=== PATIENT | male | born 1985 | race Caucasian/White ===

== ENCOUNTER 2022-11-08 17:46 | Emergency (ER) | payer OTHER, MEDICAID, SELFPAY ==
[2022-11-08 17:54] VITALS: BP 179/111; PULSE 99; RESP 16; TEMP 36.8; O2SAT 99; BMI 48.6
--- NOTE | 2022-11-08 18:00 | DI.CT.S_ITS ---
PROCEDURE: CT STROKE INDICATIONS: Stroke symptoms TECHNIQUE: Noncontrast 4.5 mm thick angled axial sections acquired from the foramen magnum to the vertex, with coronal reformats. For radiation dose reduction, the following was used: automated exposure control, adjustment of mA and/or kV according to patient size. COMPARISON: [facility], CT, CT ANGIO HEAD AND NECK, 11/08/2022, 18:21. FINDINGS: Image quality: Excellent. CSF spaces: Basal cisterns are patent. No extra-axial fluid collections. Ventricles are normal in size and shape. Brain: No midline shift. No intracranial masses or hemorrhage. Colin-white matter interface is normal. Skull and face: Calvarium and visualized facial bones are intact, without suspicious lesions. Sinuses: Visualized sinuses and mastoids are clear. IMPRESSION: Normal CT of the brain This study fulfills neurological imaging criteria for inclusion or exclusion of acute stroke therapies based on available published neurological imaging guidelines. Note: Critical results were discussed with Dr. Loredo at 05:50 PM [place] time on 11/08/22 Approved by: Galen Kohli M.D. on 11/08/2022 at 17:50
--- NOTE | 2022-11-08 18:00 | DI.RAD.S_ITS ---
PROCEDURE: XR CHEST 1V INDICATIONS: Possible stroke TECHNIQUE: One view of the chest was acquired. COMPARISON: None. FINDINGS: Surgical changes and devices: None. Lungs and pleura: Lungs are clear. No pleural effusions or pneumothorax. Mediastinum: Mediastinal contours appear normal. Heart size is normal. Bones and chest wall: No suspicious bony lesions. Overlying soft tissues appear unremarkable. IMPRESSION: No acute cardiopulmonary findings Approved by: Galen Kohli M.D. on 11/08/2022 at 17:43
--- NOTE | 2022-11-08 18:04 | DI.CT.S_ITS ---
PROCEDURE: CT ANGIO HEAD AND NECK INDICATIONS: stroke eval, within window, vision, dizzy TECHNIQUE: After the administration of intravenous contrast, 1 mm thick sections acquired from the aortic arch through the [place] of [place]. MIP reformats of the arterial vasculature were utilized. For radiation dose reduction, the following was used: automated exposure control, adjustment of mA and/or kV according to patient size. COMPARISON: None. FINDINGS: Image quality: Limited by bolus timing, but diagnostic. HEAD CT ANGIOGRAPHY: Anterior circulation: Intracranial internal carotid arteries are normal in size and flow. The flow within the paired anterior cerebral arteries is normal and symmetric. The flow within the middle cerebral arteries is normal and symmetric. The anterior communicating artery is seen. No aneurysms are seen. Posterior circulation: Visualized portions of the vertebral arteries demonstrate normal caliber, and join to form a normal appearing basilar artery. Flow within the posterior cerebral arteries is normal and symmetric. No aneurysms are seen. NECK CT ANGIOGRAPHY: Carotid system: The great vessels demonstrate a conventional anatomy as they arise from the aortic arch. The origins of the common carotid arteries appear patent. The common carotid arteries demonstrate normal caliber and courses. The bifurcation regions are both widely patent. The internal carotid arteries demonstrate normal calibers and courses. Posterior circulation: The origins of the vertebral arteries both appear widely patent. The more superior extracranial portions of both vertebral arteries also demonstrate normal courses and calibers. They join to form a normal appearing basilar artery. Soft tissues: Visualized neck soft tissues demonstrate no suspicious abnormalities. Bones: No suspicious bony lesions. Visualized cervical spine appears normally aligned. IMPRESSION: Normal CT angiogram of the head and neck. No evidence of large vessel occlusion, aneurysm or vascular malformation Any quantitative measurements of stenosis were performed using NASCET criteria. Approved by: Galen Kohli M.D. on 11/08/2022 at 18:06
--- NOTE | 2022-11-08 18:20 | ED_ITS ---
HPI - Neuro Symptoms/Deficit General Chief Complaint: Neuro Symptoms/Deficit Stated Complaint: lost vision/sent by [facility] Time Seen by Provider: 11/08/22 18:03 History of Present Illness HPI Narrative: 37-year-old male nonsmoker without chronic medical history presents with a chief complaint of blurring of vision that he noticed at about 1700 today. 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 It is unclear if what he is referring to his blurring or if they are actually double images [id number]. He denies dizziness, weakness or lightheadedness. Denies any trouble forming thoughts or with speech. He denies any difficulty walking a straight line, he denies any upper extremity numbness, tingling or weakness. He is activated as a code stroke. He does report a history of migraines and states he is never had an ocular migraine. Denies any recent trauma or injury. On Anticoagulants: No Related Data Allergies Allergy/AdvReac Type Severity Reaction Status Date / Time No Known Drug Allergies Allergy Verified 11/08/22 18:03 Review of Systems Review of Systems Narrative: GENERAL: Denies chills, fatigue, malaise, fever, sweats. HEENT: Denies sinus pain, ear pain, sore throat, difficulty swallowing, dizzines s. RESPIRATORY: Denies dyspnea, cough, wheezing, hemoptysis, sputum. CARDIOVASCULAR: Denies chest pain, palpitations, orthopnea, edema, GASTROINTESTINAL: Denies nausea, vomiting, abdominal pain, diarrhea, constipation, melena. : Denies dysuria, frequency, incontinence, hematuria, urinary retention. MUSCULOSKELETAL: denies weakness, joint pain, or bony pain SKIN: Denies rash, skin lesions, or other NEUROLOGIC: See HPI PSYCHIATRIC: No concerning psychosocial issues. 12 point review of systems is negative except for those stated above Hematologic/Lymphatic On Anticoagulants: No Exam Narrative Exam Narrative: GENERAL: [37] year old patient appears stated age. Well-developed patient, in mild distress. HEAD: Atraumatic. Normocephalic. EYES: Pupils equal round and reactive. Extraocular motions intact. No scleral icterus. No injection or drainage. ENT: Nose without bleeding, purulent drainage. Throat without erythema, tonsillar hypertrophy or exudate. Airway patent. NECK: Trachea midline. Non tender CARDIOVASCULAR: Regular rate and rhythm without murmurs, gallops, or rubs. RESPIRATORY: Clear to auscultation. Breath sounds equal bilaterally. No wheezes, rales, or rhonchi. GASTROINTESTINAL: Abdomen soft, non-tender, nondistended. EXTREMITIES: No edema or joint tenderness. BACK: Nontender without deformity or crepitance. No flank tenderness. NEURO: AOx3. SKIN: No rash or erythema of visible areas NIH Stroke Scale 1a. LOC: Patient is alert and keenly responsive (0) 1b. LOC Questions: Patient answers both LOC questions accurately (0) 1c. LOC Commands: Patient performs both tasks correctly (0) 2. Best Gaze: Normal (0) 3. Visual: No visual loss (0) 4. Facial palsy: Normal symmetrical movements (0) 5. Motor arm: No drift (0) 6. Motor leg: No drift (0) 7. Limb ataxia: Absent (0) 8. Sensory: Normal (0) 9. Best language: No aphasia; normal (0) 10. Dysarthria: Normal (0) 11. Extinction and inattention: No abnormality (0) NIHSS: 0 Initial Vital Signs Initial Vital Signs: Vital Signs Temperature 98.3 F 11/08/22 17:54 Pulse Rate 99 H 11/08/22 17:54 Respiratory Rate 16 11/08/22 17:54 Blood Pressure 179/111 H 11/08/22 17:54 Pulse Oximetry 99 11/08/22 17:54 Oxygen Delivery Method Room Air 11/08/22 17:54 Course Orders Ordered: Discontinued Medications Ketorolac Tromethamine (Ketorolac 30 Mg/Ml Vial) 15 mg IV NOW ONE Stop: 11/08/22 21:06 Last Admin: 11/08/22 21:10 Dose: 15 mg Documented By: JONAH Ondansetron HCl (Ondansetron 4 Mg/2 Ml Inj) 4 mg IV NOW PRN PRN Reason: Nausea And Vomiting Ondansetron HCl (Ondansetron 4 Mg Odt) 4 mg SL NOW PRN PRN Reason: Nausea And Vomiting Vital Signs Vital signs: Vital Signs - 8 hr 11/08/22 21:13 11/08/22 22:21 Temperature 98.8 F Pulse Rate 68 89 Respiratory Rate 17 16 Blood Pressure 166/88 H 162/93 H Pulse Oximetry 99 97 Oxygen Delivery Method Room Air Room Air [facility] - Neuro Symptoms/Deficit Lab Data 11/08/22 18:06 11/08/22 18:06 Labs: Lab Results 11/08/22 11/08/22 11/08/22 Range/Units 18:06 18:06 18:06 WBC 7.3 (4.5-11.0) X10^3/uL RBC 5.36 (4.5-5.9) X10^6/uL Hgb 15.8 (13.5-17.5) g/dL Hct 46.2 (41-53) % MCV 86.2 (80-100) fL MCH 29.5 (26-34) PG MCHC 34.2 (30-36) % RDW 14.0 (11.6-14.8) % Plt Count 200 (150-400) X10^3/uL Neut % (Auto) 59.5 (50-75) % Lymph % (Auto) 28.8 (25-40) % Weld % (Auto) 7.9 (3-14) % Eos % (Auto) 3.0 (2-4) % Baso % (Auto) 0.8 (0-2) % Neut # (Auto) 4400 (1944-1205) /uL Lymph # (Auto) 2100 (6663-3832) /uL Weld # (Auto) 600 (0-900) /uL Eos # (Auto) 200 (0-450) /uL Baso # (Auto) 100 (0-100) /uL PT 12.7 (10.1-12.7) SECONDS INR 1.1 (0.9-1.3) APTT 34 (26-36) SECONDS Sodium (137-145) mmol/L Potassium (3.4-5.1) mmol/L Chloride (98-107) mmol/L Carbon Dioxide (22-32) mmol/L BUN (9-20) mg/dL Creatinine (0.66-1.25) mg/dL Estimated GFR (>60) mL/min BUN/Creatinine Ratio (6-22) Glucose (70-100) mg/dL Calcium (8.4-10.2) mg/dL Magnesium 1.9 (1.6-2.3) mg/dL Total Bilirubin (0.2-1.3) mg/dL AST (17-59) IU/L ALT (<50) IU/L Alkaline Phosphatase (38-126) U/L Total Creatine Kinase (55-170) U/L Troponin I (0.01-0.034) ng/mL Total Protein (6.3-8.2) g/dL Albumin (3.5-5.0) g/dL Globulin (1.7-4.1) g/dL Albumin/Globulin Ratio (1.0-2.8) Ethyl Alcohol ( - 10) mg/dL 11/08/22 Range/Units 18:06 WBC (4.5-11.0) X10^3/uL RBC (4.5-5.9) X10^6/uL Hgb (13.5-17.5) g/dL Hct (41-53) % MCV (80-100) fL MCH (26-34) PG MCHC (30-36) % RDW (11.6-14.8) % Plt Count (150-400) X10^3/uL Neut % (Auto) (50-75) % Lymph % (Auto) (25-40) % Weld % (Auto) (3-14) % Eos % (Auto) (2-4) % Baso % (Auto) (0-2) % Neut # (Auto) (4678-5832) /uL Lymph # (Auto) (2933-8650) /uL Weld # (Auto) (0-900) /uL Eos # (Auto) (0-450) /uL Baso # (Auto) (0-100) /uL PT (10.1-12.7) SECONDS INR (0.9-1.3) APTT (26-36) SECONDS Sodium 138 (137-145) mmol/L Potassium 4.3 (3.4-5.1) mmol/L Chloride 106 (98-107) mmol/L Carbon Dioxide 22 (22-32) mmol/L BUN 14 (9-20) mg/dL Creatinine 1.02 (0.66-1.25) mg/dL Estimated GFR > 60 (>60) mL/min BUN/Creatinine Ratio 13.7 (6-22) Glucose 123 H (70-100) mg/dL Calcium 8.6 (8.4-10.2) mg/dL Magnesium (1.6-2.3) mg/dL Total Bilirubin 0.5 (0.2-1.3) mg/dL AST 36 (17-59) IU/L ALT 55 H (<50) IU/L Alkaline Phosphatase 52 (38-126) U/L Total Creatine Kinase 161 (55-170) U/L Troponin I < 0.012 (0.01-0.034) ng/mL Total Protein 7.8 (6.3-8.2) g/dL Albumin 4.4 (3.5-5.0) g/dL Globulin 3.4 (1.7-4.1) g/dL Albumin/Globulin Ratio 1.3 (1.0-2.8) Ethyl Alcohol < 10 ( - 10) mg/dL MDM Narrative Medical decision making narrative: CC: 37-year-old male with relatively sudden onset blurring of vision Complicating co-morbidities: BMI 48 Data collected from: Patient Medical records reviewed: Prior notes reviewed in our EMR Differential considered, but not limited to: Stroke versus electrolyte abnormality versus anemia versus TIA versus atypical migraine versus other Exam documented above, pertinent findings include: Heart rate regular, lungs clear, NIH stroke scale of 0 Lab Test results independently reviewed as above. Pertinent findings: No leukocytosis or left shift, no signs of anemia,, electrolytes, renal function within normal, glucose 123 Independently reviewed EKG as above Imaging studies independently reviewed: CT head and CTA head/neck without acute findings Scores Used: NIHSS Treatments: ASA, Toradol Re-evaluations: Patient's symptoms all but resolved at time of discharge Discussion: Patient with low risk presents with blurring of vision after being on his computer. Multiple diagnoses considered including atypical migraine, ocular migraine, TIA, dissection versus other, as noted above. Patient initially activated as a code stroke but symptoms improved rapidly in not a tPA candidate. Imaging is very reassuring and no evidence of mass, bleed or dissection noted. Labs reassuring. Patient was given Toradol in the event that this was actually a consequence of migraine, withouit much change. We did discuss the possibility of this being a TIA but given low ABCD2 score even were that the case it would be appropriate for DC. AFter lengthy discussion of risks and benefits we share the opinion that it is appropriate for DC and close follow up Disposition: see below, along with detailed discharge instructions that have been reviewed with patient as well as indications for ED re-evaluation and additional outpatient follow up Discharge Plan Departure Patient Disposition: Home Clinical Impression: Blurred vision Instructions: DI for Visual Field Disturbances Activity Restrictions/Additional Instructions: *You have been diagnosed with [blurred vision. As we discussed your history and physical exam are reassuring as are your improved symptoms. We did an extensive workup including CT scans and labs all of which was unremarkable. *What to do: * please consider starting to take a baby aspirin daily, otherwise please continue to take your regular medications as directed. [ ] New medication prescriptions sent to your pharmacy: [ ] [ ] New medication written as a paper prescription [ ] No new medications given *Please follow up with your primary care provider in 2-3 days, call for an appointment. Let them know you were seen in the Emergency Department and that we ask that you be seen in follow up. We will electronically transmit a record of today's note if your PCP is in our system *If you do not have a primary care provider please contact the [facility] Resource line at [phone]. They will ask some questions about your medical history and help get you set up with a doctor in the community. *Return to Emergency Department if you should have any new, worsening or concerning symptoms, such as [fever greater than 101 F, shaking chills, worsening pain, persistent vomiting or other bothersome symptoms] Referrals: Hannah Hilton ARNP [Primary Care Provider] - Stand Alone Forms: Patient Portal/API
[2022-11-08 18:23] LABS: Add Manual Diff / Slide Review NO; Basophils Absolute Auto 100 /uL (0-100); Basophils Percent Auto 0.8 % (0-2); Eosinophils Absolute Auto 200 /uL (0-450); Hematocrit 46.2 % (41-53); Hemoglobin 15.8 g/dL (13.5-17.5); Lymphocytes Absolute Auto 2100 /uL (1100-4500); Lymphocytes Percent Auto 28.8 % (25-40); Mean Corpuscular HGB Conc 34.2 % (30-36); Mean Corpuscular Hemoglobin 29.5 PG (26-34); Mean Corpuscular Volume 86.2 fL (80-100); Monocytes Absolute Auto 600 /uL (0-900); Monocytes Percent Auto 7.9 % (3-14); Neutrophils Absolute Auto 4400 /uL (1500-7000); Neutrophils Percent Auto 59.5 % (50-75); Platelet Count 200 X10^3/uL (150-400); Red Blood Cell Count 5.36 X10^6/uL (4.5-5.9); White Blood Cell Count 7.3 X10^3/uL (4.5-11.0)
[2022-11-08 18:34] LABS: INR 1.1 (0.9-1.3); Prothrombin Time 12.7 SECONDS (10.1-12.7)
[2022-11-08 18:36] LABS: PTT Partial Thromboplastin Tim 34 SECONDS (26-36)
[2022-11-08 18:37] LABS: Magnesium 1.9 mg/dL (1.6-2.3)
[2022-11-08 18:38] LABS: Alanine Aminotransferase 55 IU/L (<50); Albumin 4.4 g/dL (3.5-5.0); Albumin Globulin Ratio 1.3 (1.0-2.8); Alkaline Phosphatase 52 U/L (38-126); Aspartate Aminotransferase 36 IU/L (17-59); BUN Creatinine Ratio 13.7 (6-22); Bilirubin Total 0.5 mg/dL (0.2-1.3); Blood Urea Nitrogen 14 mg/dL (9-20); Calcium 8.6 mg/dL (8.4-10.2); Carbon Dioxide 22 mmol/L (22-32); Chloride 106 mmol/L (98-107); Creatine Kinase 161 U/L (55-170); Estimated Glomerular Filt Rate > 60 mL/min (>60); Ethanol (ETOH) < 10 mg/dL; Globulin 3.4 g/dL (1.7-4.1); Glucose 123 mg/dL (70-100); HEMOLYSIS < 15 (0-50); Potassium 4.3 mmol/L (3.4-5.1); Sodium 138 mmol/L (137-145); Total Protein 7.8 g/dL (6.3-8.2)
[2022-11-08 18:49] LABS: Troponin I < 0.012 ng/mL (0.01-0.034)
[2022-11-08] MEDS: KETOROLAC 30 MG/ML VIAL 15 MG IV (21:10)
[2022-11-08 21:13] VITALS: BP 166/88; PULSE 68; RESP 17; O2SAT 99
[2022-11-08 22:21] VITALS: BP 162/93; PULSE 89; RESP 16; TEMP 37.1; O2SAT 97
== END 2022-11-08 22:25 | disposition home or self-care (01) ==
PROVIDERS: Emergency Medicine; Emergency Provider Emergency Medicine; PCP Nurse Practitioner Family
DX: H53.8 Other visual disturbances (principal)
CPT/HCPCS: 36415; 70450; 70496; 70498; 71045; 80053; 80320; 82550; 83735; 84484; 85025; 85610; 85730; 96374; 99284; J1885

== ENCOUNTER 2022-11-09 10:50 | Emergency (ER) | payer OTHER, MEDICAID, SELFPAY ==
[2022-11-09 11:12] VITALS: BP 161/97; PULSE 105; RESP 18; TEMP 36.8; O2SAT 98; BMI 48.6
--- NOTE | 2022-11-09 11:37 | DI.MRI.S_ITS ---
PROCEDURE: MR HEAD/BRAIN WO CON INDICATIONS: visual disurbance TECHNIQUE: Noncontrast axial T1 spin echo, axial T2 fast spin echo, sagittal and axial FLAIR, coronal T2 fast spin echo, axial gradient echo, axial diffusion and ADC through the brain. COMPARISON: None. FINDINGS: Image quality: Excellent. CSF Spaces: Basal cisterns are patent. No extra-axial fluid collections. Ventricles are normal in size and shape. Brain: No intracranial masses or hemorrhage. Colin/white matter interface is normal. Brainstem appears normal. Diffusion-weighted images demonstrate no acute ischemic insult. No chronic ischemic insults. Normal intravascular flow voids are present. Skull and face: Calvarium has normal marrow signal. Orbits appear normal. Sinuses: Sinuses and mastoids are clear. IMPRESSION: Normal MRI of the brain Approved by: Galen Kohli M.D. on 11/09/2022 at 12:00
--- NOTE | 2022-11-09 16:09 | ED_ITS ---
HPI - Neuro Symptoms/Deficit General Chief Complaint: Neuro Symptoms/Deficit Stated Complaint: seen T-1/ for vision loss/still having issues Time Seen by Provider: 11/09/22 16:09 Source: patient Mode of arrival: Ambulatory History of Present Illness HPI Narrative: The patient 37-year-old male presents today for follow-up. He was seen evaluated yesterday is possible stroke with blurry vision. He works for [employer] he reports that he was looking at a computer screen for number of hours which is what he does regularly when suddenly he could not read in his vision was blurry. He denies any loss of vision no curtain closing trouble f ocusing. He denies wearing any corrective lenses. No numbness tingling weakness. No chest pain shortness of breath. He thought it might be a migraine he was treated for migraine head CT CT angio stroke workup vision improved it lasted for about 1 hour. Discussion of admission versus go home monitor and return if symptoms worsen. We opted to go home returned today he reports that he is actually able to read today so that part has improved however he still has a mild headache and was concerned. Denies all other symptoms. On Anticoagulants: No Related Data Allergies Allergy/AdvReac Type Severity Reaction Status Date / Time No Known Drug Allergies Allergy Verified 11/08/22 18:03 Review of Systems Review of Systems ROS Unobtainable: All systems reviewed & are unremarkable except as noted in HPI and below Hematologic/Lymphatic On Anticoagulants: No Patient History Social History Smoking Status: Never smoker Smoking Status: Never smoker Substance Use Type: does not use Exam Initial Vital Signs Initial Vital Signs: Vital Signs Temperature 98.3 F 11/09/22 11:12 Pulse Rate 105 H 11/09/22 11:12 Respiratory Rate 18 11/09/22 11:12 Blood Pressure 161/97 H 11/09/22 11:12 Pulse Oximetry 98 11/09/22 11:12 Oxygen Delivery Method Room Air 11/09/22 11:12 GENERAL: Alert pleasant 37-year-old male and in no acute distress. HEENT: Head atraumatic,EOMI, pupils reactive, face symmetric, moist mucous membranes Ultrasound at bedside does not no retinal detachment. Cesar-Pen is broken. CARDIOVASCULAR: Regular rate and rhythm without murmurs, rubs or gallops. RESPIRATORY: Breath sounds equal bilaterally, no wheezes rales or rhonchi. ABDOMEN: Soft, nontender. Normoactive bowel sounds all 4 quadrants. No guarding or rebound. EXTREMITIES: Normal range of motion, no clubbing or edema. Neurovascularly intact NEUROLOGICAL: Alert and oriented x4.Normal gait and speech. Cranial nerves II through XII grossly intact. Good [id number], good [id number], strength equal bilaterally, no dysarthria or aphasia, sensation in tact to soft touch bilaterally, no visual changes, no facial droop SKIN: Warm, dry, no laceration, no petechiae, no rashes or lesions. Course Orders Ordered: ED Orders 11/09/22 11:37 MR head/brain wo con Stat Discontinued Medications Proparacaine HCl (Proparacaine 0.5% Ophth Sammi) 1 drops EYE-BOTH NOW ONE Stop: 11/09/22 16:31 Last Admin: 11/09/22 16:37 Dose: 1 bottle Documented By: SB Vital Signs Vital signs: Vital Signs - 8 hr 11/09/22 16:33 Pulse Rate 94 H Blood Pressure 163/87 H Pulse Oximetry 99 Oxygen Delivery Method Room Air MDM - Neuro Symptoms/Deficit Imaging Data MR brain: Radiologist's Impression: PROCEDURE:? MR HEAD/BRAIN WO CON ? INDICATIONS:? visual disurbance ? TECHNIQUE:? Noncontrast axial T1 spin echo, axial T2 fast spin echo, sagittal and axial FLAIR, coronal T2 fast spin echo, axial gradient echo, axial diffusion and ADC through the brain.? ? COMPARISON:? None. ? FINDINGS:? Image quality:? Excellent.? ? CSF Spaces:? Basal cisterns are patent.? No extra-axial fluid collections.? Jason tricles are normal in size and shape.? ? Brain:? No intracranial masses or hemorrhage.? Colin/white matter interface is normal.? Brainstem appears normal.? Diffusion-weighted images demonstrate no acute ischemic insult.? No chronic ischemic insults.? Normal intravascular flow voids are present.? ? Skull and face:? Calvarium has normal marrow signal.? Orbits appear normal.? ? Sinuses:? Sinuses and mastoids are clear.? ? IMPRESSION:? Normal MRI of the brain ? ? ? Approved by: Galen Kohli M.D. on 11/09/2022 at 12:00? [facility] Narrative Medical decision making narrative: Patient 37-year-old healthy male who presents today for follow-up after being here in the ED yesterday for blurred vision. He was looking at a computer screen when he started having blurry vision that lasted for about an hour and resolved. He has a history of migraine headaches. I suspect he is had an ocular migraine. Woke up this morning he is able to read blurred vision is mostly better. He denies any loss of vision halos or floaters. Post suspicion for retinal artery occlusion, retinal detachment, vitreous humor detachment or glaucoma. Unfortunately the Cesar-Pen is broken not able to measure pressures bedside ultrasound does not show any detachment in the back. Nonetheless recommend he follow-up with ophthalmology. No evidence of stroke on MRI today. No need for recurrent blood work overall feeling of better. Discharge Plan Departure Patient Disposition: Home Clinical Impression: Ocular migraine Instructions: Migraine -- Adult Activity Restrictions/Additional Instructions: *You have been diagnosed with ocular migraine *What to do: At this time I suspect highly that you have an ocular migraine. I do recommend seeing an filer repairer for further eye examination. *Continue to take medications as directed Ibuprofen 600 mg every 6 hours if needed for [id number] pain *Follow up with your primary care provider in 2-3 days or call [phone] *Return to ER if you should have persistent ongoing worsening blurry vision double vision loss of vision floaters or any new, worsening or concerning symptoms Referrals: Hannah Hilton ARNP [Primary Care Provider] - Stand Alone Forms: Patient Portal/API
[2022-11-09 16:33] VITALS: BP 163/87; PULSE 94; O2SAT 99
[2022-11-09] MEDS: PROPARACAINE 0.5% OPHTH SOL 1 DROPS EYE-BOTH (16:37)
== END 2022-11-09 17:03 | disposition home or self-care (01) ==
PROVIDERS: Emergency Provider Emergency Medicine; PCP Nurse Practitioner Family
DX: G43.109 Migraine with aura, not intractable, without status migrainosus (principal); H53.8 Other visual disturbances
CPT/HCPCS: 70551; 99283